=== PATIENT | male | born 1975 | race African-American/Black ===

== ENCOUNTER 2019-03-14 07:16 | Emergency (ER) | payer MEDICAID ==
[~2019-03-14] VITALS: Ht 175.3 cm; Wt 75.0 kg
[2019-03-14] MEDS ORDERED: AMOXICILLIN/POTASSIUM CLAVULANATE 875/125MG TAB PO ONE (08:00)
[2019-03-14] MEDS ORDERED: ACETAMINOPHEN 500MG TABLET PO ONE (08:00)
[2019-03-14 08:21] VITALS: BP 112/82
== END 2019-03-14 08:24 | disposition home or self-care (01) ==
LOC: ER 07:16
DX: K04.7 Periapical abscess without sinus (principal); K02.9 Dental caries, unspecified
CPT/HCPCS: 99283

== ENCOUNTER 2024-08-17 10:11 | Emergency (ER) | payer MEDICAID ==
[~2024-08-17] VITALS: Ht 172.7 cm; Wt 100.0 kg
[2024-08-17 10:13] VITALS: O2SAT 99
[2024-08-17 11:01] LABS: BASOPHILS % 0.2 % (0.0-2.0); DIFFERENTIAL COMMENT 0; EOSINOPHILS % 0.8 % (0.0-5.0); HEMATOCRIT. 43.9 % (42.0-52.0); HEMOGLOBIN. 14.4 g/dL (14.0-18.0); LYMPHOCYTES % 21.3 % (20.0-50.0); MEAN CORPUSCULAR HEMOGLOBIN 26.6 pg (28.0-32.0); MEAN CORPUSCULAR HGB CONC 32.9 g/dL (31.0-37.0); MEAN CORPUSCULAR VOLUME 80.9 fL (80.0-94.0); MONOCYTES % 8.5 % (2.0-8.0); NEUTROPHILS % 69.2 % (40.0-76.0); RED BLOOD CELL COUNT 5.43 mill/uL (4.7-6.1); RED CELL DISTRIBUTION WIDTH 14.9 % (11.6-14.6); WHITE BLOOD COUNT 6.7 x1000/uL (4.5-11.0)
[2024-08-17 11:09] LABS: CHLORIDE 107 mEq/L (98-107); POTASSIUM 3.9 mEq/L (3.5-5.1); SODIUM 140 mEq/L (136-145)
[2024-08-17 11:11] LABS: CARBON DIOXIDE 25 mEq/L (21-32)
[2024-08-17 11:12] LABS: CALCIUM 9.3 mg/dL (8.7-10.4)
[2024-08-17 11:16] LABS: GLUCOSE 97 mg/dL (70-105); UREA NITROGEN BLOOD 14 mg/dL (9-23)
[2024-08-17 11:18] LABS: ALANINE AMINOTRANSFERASE 22 IU/L (10-49); ALBUMIN 4.4 g/dL (3.2-4.8); ASPARTATE AMINOTRANSFERASE 20 IU/L (<34); PROTHROMBIN TIME 11.1 sec (9.6-11.0)
[2024-08-17 11:19] LABS: BILIRUBIN DIRECT 0.2 mg/dL (<=3.0); BILIRUBIN TOTAL 0.7 mg/dL (0.1-1.0)
[2024-08-17 11:38] LABS: MEAN PLATELET VOLUME 11.8 fl (7.4-10.4); PLATELET 58 x1000/uL (130-400)
[2024-08-17] MEDS ORDERED: GABA-529 MT (11:59)
[2024-08-17] MEDS ORDERED: LIDO-53 TP (11:59)
[2024-08-17] MEDS: DEXAMETHASONE 4MG/ML 1ML VIAL IM ONE (12:36)
[2024-08-17 12:38] VITALS: BP 138/98; PULSE 82; RESP 14; TEMP 36.7; O2SAT 96
[2024-08-17] MEDS: IBUPROFEN 400MG TABLET PO ONE (12:38)
== END 2024-08-17 12:39 | disposition home or self-care (01) ==
LOC: ER 10:11
DX: M79.605 Pain in left leg (principal)
CPT/HCPCS: 99283; 80076; 80048; 83690; 85025; 85610; 36415; 96372; J1100